=== PATIENT | male | born 1940 | race Caucasian/White ===

== ENCOUNTER → 2016-10-11 | Outpatient (CLI) | payer MEDICARE, BC ==
--- NOTE | ~2016-10-11 | US37 ---
[facility] A Service of [facility] & [facility] RADIOLOGY TEXT RESULTS PATIENT: SHALA STREETER LOCATION: [facility] : 44 UNIT #: [id number] AGE: [address]: Gokul Simmons MD SEX: M ORDER DR: [id number] [facility] [address] [place], [place] [address] [id number] O MR#: [id number] Acc #: [id number] NAME: SHAAL STREETER : 1940 SEX: M STUDY DATE/TIME: 10/11/2016 9:04 UNIT: [facility] ROOM: STUDY DESCRIPTION: US Carotid W/Doppler Bilateral Attending Physician: Gokul Simmons M.D. Referring Physician: Gokul Simmons M.D. Ordering Physician: Gokul Simmons M.D. Primary Care Physician: Manoj Machuca M.D. MEDICAL IMAGING REPORT This report is preliminary unless electronic signature is present EXAM Carotid duplex scan, 10/11/2016 HISTORY Carotid bruit. Hypertension. Hyperlipidemia. FINDINGS The right common carotid artery has a small amount of dense plaque. There is dense irregular plaque in the right carotid bulb which extends up into the proximal internal and external carotid arteries. Peak systolic velocity in the proximal right internal carotid artery is 53 cm/sec with an end-diastolic velocity of 13 cm/sec. The ICA/CCA ratio on the right is 0.9. Peak systolic velocity in the right external carotid artery is 119 cm/sec. The right vertebral artery is patent with antegrade flow. The left common carotid artery has a small amount of dense plaque. There is dense irregular plaque in the left carotid bulb which extends up into the proximal internal and external carotid arteries. Peak systolic velocity in the distal left internal carotid artery is 69 cm/sec with an end-diastolic velocity of 30 cm/sec. The ICA/CCA ratio on the left is 1.12. Peak systolic velocity in the left external carotid artery is 74 cm/sec. The left vertebral artery is patent with antegrade flow. IMPRESSION Small amount of plaque, but no significant stenosis (less than 50%) in the internal and external carotid arteries bilaterally. Patent vertebral arteries bilaterally with antegrade flow. Dictated by... Wilian Li M.D. THIS IS AN ELECTRONICALLY VERIFIED REPORT [facility] A Service of [facility] & [facility] RADIOLOGY TEXT RESULTS PATIENT: SHALA STREETER LOCATION: [facility] : 44 UNIT #: [id number] AGE: [address]: Gokul Simmons MD SEX: M ORDER DR: Wilian Li M.D. at 10/12/2016 9:41 AM Chavo TD: 10/11/2016 15:17 JOB #: [id number] MEDICAL IMAGING REPORT Page 1 of 1 COPY
== END | disposition home or self-care (01) ==
LOC: CNIV 08:20
DX: R09.89 Other specified symptoms and signs involving the circulatory and respiratory systems (principal); I65.23 Occlusion and stenosis of bilateral carotid arteries; I10 Essential (primary) hypertension; E78.5 Hyperlipidemia, unspecified
CPT/HCPCS: 93880